=== PATIENT | male | born 1990 | race African-American/Black ===

== ENCOUNTER 2017-04-01 20:39 | Emergency (ER) | payer MEDICAID ==
[~2017-04-01] VITALS: Ht 182.9 cm; Wt 90.7 kg
[2017-04-01 21:15] LABS: Basophils # (auto) 0.1 uL; Basophils % (auto) 0.8 % (0.0-2.0); Eosinophils # (auto) 0 uL; Eosinophils % (auto) 0.7 % (0.0-7.0); Hematocrit 35.6 % (41.0-53.0); Hemoglobin 12.2 g/dL (13.5-17.5); Lymphocytes # (auto) 1.1 uL; Lymphocytes % (auto) 16.5 % (10.0-50.0); Mean Corpuscular Hemoglobin 28.7 pg (28.0-32.0); Mean Corpuscular Hgb Conc. 34.2 g/dL (32.0-36.0); Mean Corpuscular Volume 83.9 fL (80.0-100.0); Mean Platelet Volume 8.5 fL (7.4-10.4); Monocytes # (auto) 0.4 uL; Monocytes % (auto) 6.3 % (0.0-12.0); Neutrophils % (auto) 75.7 % (37.0-80.0); Platelet Count (auto) 214 10^3/uL (140-450); Red Cell Distribution Width 17.6 % (11.6-16.0); White Blood Cell 6.7 10^3/uL (4.4-10.8)
[2017-04-01 21:41] LABS: Albumin 3.3 g/dL (3.4-5.0); Alkaline Phosphatase 101 U/L (45-117); Anion Gap 6 (5-15); BUN/Creatinine Ratio 10.7; Bilirubin, Total 0.2 mg/dL (0.2-1.0); Blood Urea Nitrogen 11 mg/dL (7-18); Calcium 8.1 mg/dL (8.5-10.1); Carbon Dioxide 27 mmol/L (21-32); Chloride 109 mmol/L (98-107); GFR African American 111 mL/min; GFR Non-African American 91 mL/min; Glucose 112 mg/dL (74-106); Magnesium 1.9 mg/dL (1.6-2.6); Sodium 142 mmol/L (136-145); Total Protein 6.5 g/dL (6.4-8.2)
[2017-04-01 22:03] LABS: Potassium 4.1 mmol/L (3.5-5.1)
[2017-04-01 22:08] LABS: Aspartate Aminotransferase 20 U/L (15-37)
[2017-04-01] MEDS ORDERED: SODIUM CHLORIDE 0.9% 1,000 ML IV ONE (23:15)
[2017-04-01] MEDS ORDERED: methylPREDNISolone SOD SUCC 125 MG/2 ML VL IV ONE (23:15)
[2017-04-01] MEDS ORDERED: ALBUTEROL SULF 2.5 MG/0.5ML(0.5%) NEB SOLN NEB ONE (23:15)
[2017-04-01] MEDS ORDERED: IPRATROPIUM BROM 0.5 MG/2.5ML INH SOL NEB ONE (23:15)
[2017-04-02 01:03] VITALS: BP 138/83
== END 2017-04-02 01:05 | disposition home or self-care (01) ==
LOC: EDBD 20:39 → ER 20:46
DX: C34.90 Malignant neoplasm of unspecified part of unspecified bronchus or lung (principal); J06.9 Acute upper respiratory infection, unspecified
CPT/HCPCS: 36415; 71010; 80053; 83735; 84484; 85025; 93005; 94640; 96361; 96374; 99285; J2930; J7030